=== PATIENT | male | born 1955 | race Two or more races ===

== ENCOUNTER → 2017-10-24 | Outpatient (CLI) | payer OTHER ==
--- NOTE | 2017-10-24 13:50 | RADIOLOGY REPORT (SQ) ---
EXAM DESCRIPTION: CT RT UPPER EXTREMITY WITHOUT COMPLETED DATE/TIME: 10/24/2017 1:14 pm REASON FOR STUDY: PRIMARY OSTEOARTHRISTIS, RIGHT WRIST M19.031 PRIMARY OSTEOARTHRITIS, RIGHT WRIST COMPARISON: None. TECHNIQUE: Axial imaging performed through the right wrist with reformatted coronal and sagittal ronnie ging windowed for bone and soft tissues. Images saved to PACS. 3D IMAGING: Were 3D images as MIP, SSD, or volume rendering performed at the work station? Yes. All CT scanners at this facility use dose modulation, iterative reconstruction, and/or weight based d osing when appropriate to reduce radiation dose to as low as reasonably achievable (ALARA). [facility]: Dose Right [facility]: CareDose [facility]: Dose Right [facility]: Teradose 4D [facility]: [employer] LIMITATIONS: None. RADIATION DOSE: CT Rad equipment meets quality standard of care and radiation dose reduction techniq ues were employed. CTDIvol: 4.6 mGy. DLP: 103 mGy-cm. mGy. FINDINGS: SOFT TISSUES: No obvious swelling or foreign body. BONES: Partial collapse of the proximal carpal row status post fusion of the lunate and scaphoid with a metallic screw which is fragmented along the dorsal lateral margin. The screw tips abut the radio carpal joint. There is dorsal tilt of the lunate relative to the capitate. Osteoarthritic changes i n the proximal and middle carpal rows. MINERALIZATION: Osteopenia. OTHER: No other significant finding. 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 TECHNICAL DOCUMENTATION: JOB ID: [id number] Quality ID # [id number]: Final reports with documentation of one or more dose reduction techniques (e.g., Au tomated exposure control, adjustment of the mA and/or kV according to patient size, use of iterative reconstruction technique) 2010 [employer]- All Rights Reserved Reading location - IP/workstation name: [email or web address]
== END ==
LOC: RAD 12:53
PROVIDERS: ATTEND Physician Assistant
DX: M19.031 Primary osteoarthritis, right wrist (principal)